=== PATIENT | female | born 1980 | race Caucasian/White ===

== ENCOUNTER 2021-05-07 16:24 | Emergency (ER) | payer SELFPAY ==
[~2021-05-07] VITALS: Ht 152.4 cm; Wt 61.2 kg
[2021-05-07 16:34] VITALS: BP 122/72
--- NOTE | 2021-05-07 16:39 | NUR ---
PT. W/C ASSISTED TO BED 11
--- NOTE | 2021-05-07 16:39 | NUR ---
41/F C/O LEFT FOOT PAIN S/P FALL AT [facility] X1 HOUR AGO. PATIENT STATES UNABLE TO AMBULATE ON FOOT. DENIES LOC, HEAD/NECK/BACK PAIN. MEDHX: DENIES ALLERGIES: DENIES
--- NOTE | 2021-05-07 16:40 | NUR ---
VIKKI Roldan is evaluating patient at bedside.
[2021-05-07] MEDS ORDERED: LIDOCAINE MPF 1% 5 ML ONE (16:48)
[2021-05-07] MEDS ORDERED: BACITRACIN OINT 500 UNITS/GM PKT TP ONE ×2 (16:48→16:50)
[2021-05-07] MEDS ORDERED: LIDOCAINE MPF 1% 10 MG/ML VIAL INJ ONE (16:50)
--- NOTE | 2021-05-07 16:50 | NUR ---
VIKKI Roldan at bedside for procedure
[2021-05-07] MEDS ORDERED: IBUP-2213 PO (17:10)
--- NOTE | 2021-05-07 17:10 | NUR ---
Signature obtained for TDAP vaccine
--- NOTE | 2021-05-07 17:21 | NUR ---
LEFT FOOT WRAPPED WITH NON AHERENT BANDAGE AND GAUZE.
--- NOTE | 2021-05-07 17:30 | NUR ---
Patient discharged with v/s stable. Written and verbal after care instructions given and explained for [facility] discharge instructions/paperwork. Patient alert, oriented and verbalized understanding of instructions. Ambulatory with steady gait. All questions addressed prior to discharge. ID band removed. Patient advised to follow up with PMD. Rx of Ibuprofen given. Patient educated on indication of medication including possible reaction and side effects. Opportunity to ask questions provided and answered.
== END 2021-05-07 17:30 | disposition home or self-care (01) ==
LOC: MED 16:24
DX: S96.922A Laceration of unspecified muscle and tendon at ankle and foot level, left foot, initial encounter (principal); W26.8XXA Contact with other sharp object(s), not elsewhere classified, initial encounter; Y93.89 Activity, other specified; Y92.89 Other specified places as the place of occurrence of the external cause; Y99.8 Other external cause status
CPT/HCPCS: 12001; 90471; 90715; 99283; J2001

== ENCOUNTER 2021-05-09 18:41 | Emergency (ER) | payer SELFPAY ==
[~2021-05-09] VITALS: Ht 152.4 cm; Wt 61.2 kg
[~2021-05-09 18:41] MED LIST: IBUP-2213 PO
[2021-05-09 19:03] VITALS: BP 101/66
[2021-05-09] MEDS ORDERED: BACI1PAC6 TP (19:26)
[2021-05-09] MEDS ORDERED: BACITRACIN OINT 500 UNITS/GM PKT TP ONE (19:30)
[2021-05-09 19:45] VITALS: BP 101/66
--- NOTE | 2021-05-09 19:45 | NUR ---
Patient discharged with v/s stable. Written and verbal after care instructions given and explained. Patient alert, oriented and verbalized understanding of instructions. Ambulatory with steady gait WITH CRUTCHES. All questions addressed prior to discharge. ID band removed. Patient advised to follow up with PMD. Rx of BACITRACIN ONT given. Patient educated on indication of medication including possible reaction and side effects. Opportunity to ask questions provided and answered.
== END 2021-05-09 19:45 | disposition home or self-care (01) ==
LOC: MED 18:41
DX: S91.115D Laceration without foreign body of left lesser toe(s) without damage to nail, subsequent encounter (principal); Z79.899 Other long term (current) drug therapy; X58.XXXD Exposure to other specified factors, subsequent encounter
CPT/HCPCS: 99282

== ENCOUNTER 2021-05-14 14:06 | Emergency (ER) | payer SELFPAY ==
[~2021-05-14] VITALS: Ht 152.4 cm; Wt 59.0 kg
[~2021-05-14 14:06] MED LIST changes: +BACI1PAC6 TP
[2021-05-14 14:14] VITALS: BP 108/79
--- NOTE | 2021-05-14 14:16 | NUR ---
Patient being evaluated, SUTURE REMOVAL by VIKKI SHANNON at TRIAGE ROOM.
--- NOTE | 2021-05-14 14:16 | NUR ---
Rylan pearce in [facility] - 05/14/21 at 1429 by [email or web address] NO NEED NURSING INTERVENTIONS.
--- NOTE | 2021-05-14 14:20 | NUR ---
BIB SELF FOR SUTURE REMOVAL LEFT 3RD TOE. SENIES PAIN AT THIS TIME. WOUND C/D/I.
[2021-05-14] MEDS ORDERED: BACITRACIN OINT 500 UNITS/GM PKT TP ONE ×2 (14:22→14:25)
[2021-05-14 14:30] VITALS: BP 108/79
--- NOTE | 2021-05-14 14:30 | NUR ---
Patient discharged with v/s stable. Written and verbal after care instructions given and explained. Patient verbalized understanding. Ambulatory with steady gait. All questions addressed prior to discharge. Advised to follow up with PMD.
== END 2021-05-14 14:30 | disposition home or self-care (01) ==
LOC: MED 14:06
DX: S61.213D Laceration without foreign body of left middle finger without damage to nail, subsequent encounter (principal); Z48.00 Encounter for change or removal of nonsurgical wound dressing; X58.XXXD Exposure to other specified factors, subsequent encounter
CPT/HCPCS: 99281

== ENCOUNTER 2021-05-22 16:03 | Emergency (ER) | payer SELFPAY ==
[~2021-05-22] VITALS: Ht 152.4 cm; Wt 59.0 kg
[2021-05-22 16:36] VITALS: BP 175/64
--- NOTE | 2021-05-22 16:42 | NUR ---
PT SENT TO LOBBY
[2021-05-22] MEDS ORDERED: NAPR-54 PO (17:31)
[2021-05-22 18:00] VITALS: BP 175/64
== END 2021-05-22 18:01 | disposition home or self-care (01) ==
LOC: MED 16:03
DX: S91.115D Laceration without foreign body of left lesser toe(s) without damage to nail, subsequent encounter (principal); Z48.00 Encounter for change or removal of nonsurgical wound dressing; X58.XXXD Exposure to other specified factors, subsequent encounter
CPT/HCPCS: 99282